=== PATIENT | male | born 1980 | race Caucasian/White ===

== ENCOUNTER 2022-04-10 15:40 | Observation (INO) ==
[2022-04-10 15:53] VITALS: BMI 31.8
--- NOTE | 2022-04-10 16:18 | DR.ABDMALE ---
HPI Time seen Time Seen by Provider: 04/10/22 16:18 PCP Primary Care Physician: DR LISE SHERIDAN Complaint Chief Complaint:: PT C/O 3 DAY HISTORY OF INTERMITTENT RLQ PAIN THAT RADIATES INTO THE BLADDER AND UMBILICAL AREA ASSOCIATED WITH FEVER UP TO 101 AND NAUSEA BUT DENIES VOMITING. COVID-19 Coronavirus risk:travel/contact w/high risk person: No Has patient experienced Coronavirus symptoms: No Mode of arrival Mode of Arrival: Ambulatory Timing Onset of Chief Complaint: 04/10/22 PMH PMH Past Medical History: Yes Past Medical History: Hypertension Past Surgical History: Yes Surgical History: Tonsillectomy Family History History of Family Medical Conditions: Yes Family Medical History Comment: DIVERTICULITIS Social History Does patient currently use any type of tobacco product: No Have you used tobacco products in the last 12 months: No Type of Tobacco Use: None Does any household member use tobacco: No Alcohol Use: DAILY Do you use any recreational Drugs:: No Lives With: Family Lives Where: Home Travel Risk Coronavirus risk:travel/contact w/high risk person: No Has patient experienced Coronavirus symptoms: No Infectious screening In the last 2 months have you had wt loss of >10#?: NO Have you had fever, night sweats or hemotysis?: No Have you traveled outside the country in the last 6 months?: No Isolation: Standard ROS Review of Systems Constitutional: No Symptoms Reported Eyes: No Symptoms Reported ENTM: No Symptoms Reported Respiratoy: No Symptoms Reported Cardiovascular: No Symptoms Reported Gastrointestinal/Abdominal: Abdominal Pain Genitourinary: No Symptoms Reported Neurological: No Symptoms Reported Musculoskeletal: No Symptoms Reported Integumentary: No Symptoms Reported Hematologic/Lymphatic: No Symptoms Reported Endocrine: No Symptoms Reported Psychiatric: No Symptoms Reported All Other Systems: Reviewed and Negative PE Vital Signs Vital Signs: Temp Pulse Resp BP Pulse Ox O2 Del Method 04/10/22 17:46 74 19 123/67 98 Room Air 04/10/22 17:37 79 21 122/63 97 Room Air 04/10/22 16:43 82 22 138/65 95 Room Air 04/10/22 16:35 78 20 134/59 98 Room Air 04/10/22 16:20 87 24 136/71 98 Room Air 04/10/22 16:10 83 20 137/68 96 Room Air 04/10/22 15:49 99.2 F 118 H 20 139/95 97 Room Air General General Appearance: Alert Head Head Exam: Normal Inspection Eyes Eye exam: Normal Appearance ENT ENT Exam: Normal Exam Neck Neck Exam: Normal Inspection Respiratory Respiratory Exam: Normal Lung Sounds Bilat Cardiovascular Cardiovascular Exam: Regular Rate Abdominal Exam Abdominal Exam: Normal Inspection, Normal Bowel Sounds, Soft and Tenderness Abdominal Tenderness: RLQ and Moderate Rectal Rectal Exam: Deferred Back Back Exam: Normal Inspection; negative (R) CVA Tenderness or (L) CVA Tenderness Extremeties Extremities Exam: Normal Inspection; negative Normal Capillary Refill Exam: Male: Normal Inspection Neurologic Neurological Exam: Alert and Oriented X3; negative Motor Sensory Deficit Psychiatric Psychiatric Exam: Normal Affect and Normal Mood Skin Skin Exam: Intact ROR Labs Reviewed Result Diagrams: 04/10/22 16:33 04/10/22 16:33 Laboratory: WBC 10.7 X10^3/uL (3.6-10.0) H 04/10/22 16:33 RBC 5.50 X10^6/uL (4.7-6.0) 04/10/22 16:33 Hgb 15.6 g/dL (13.5-18.0) 04/10/22 16:33 Hct 45.3 % (42.0-54.0) 04/10/22 16:33 MCV 82.5 fL (80.0-100.0) 04/10/22 16:33 MCH 28.4 pg (27.0-34.0) 04/10/22 16:33 MCHC 34.4 g/dL (33.0-35.0) 04/10/22 16:33 RDW 13.4 % (11.6-16.5) 04/10/22 16:33 Plt Count 215 X10^3/uL (150.0-450.0) 04/10/22 16:33 Plt Count Comment Adequate (ADEQUATE) 04/10/22 16:33 MPV 9.6 fL (7.4-11.0) 04/10/22 16:33 Neut % (Auto) 87.3 % (42.0-75.0) H 04/10/22 16:33 Lymph % (Auto) 5.8 % (21.0-51.0) L 04/10/22 16:33 Pope % (Auto) 4.6 % (0.0-13.0) 04/10/22 16:33 Eos % (Auto) 1.5 % (0.9-2.9) 04/10/22 16:33 Baso % (Auto) 0.8 % (0.2-1.0) 04/10/22 16:33 Neut # (Auto) 9.3 x10^3/uL (2.2-4.8) H 04/10/22 16:33 Lymph # (Auto) 0.6 X10^3/uL (1.3-2.9) L 04/10/22 16:33 Pope # (Auto) 0.5 x10^3/uL (0.3-0.8) 04/10/22 16:33 Eos # (Auto) 0.2 x10^3/uL (0.0-0.2) 04/10/22 16:33 Baso # (Auto) 0.1 X10^3/uL (0.0-0.1) 04/10/22 16:33 Absolute Nucleated RBC 0.0 /100WBC 04/10/22 16:33 Total Counted 100 04/10/22 16:33 Neutrophils % (Manual) 88 % (39-76) H 04/10/22 16:33 Lymphocytes % (Manual) 8 % (13-43) L 04/10/22 16:33 Monocytes % (Manual) 3 % (4-9) L 04/10/22 16:33 Eosinophils % (Manual) 1 % (0-6) 04/10/22 16:33 Plt Morphology Comment Normal (NORMAL) 04/10/22 16:33 RBC Morphology Normal (NORMAL) 04/10/22 16:33 Sodium 138 mmol/L (136-145) 04/10/22 16:33 Corrected Sodium TNP 04/10/22 16:33 Potassium 4.6 mmol/L (3.5-5.1) 04/10/22 16:33 Chloride 99 mmol/L (98-107) 04/10/22 16:33 Carbon Dioxide 28.7 mmol/L (21-32) 04/10/22 16:33 BUN 20 mg/dL (7-18) H 04/10/22 16:33 Creatinine 1.36 mg/dL (0.70-1.30) H 04/10/22 16:33 Est GFR (MDRD) Af Amer > 60 (>60) 04/10/22 16:33 Est GFR (MDRD) Non-Af > 60 (>60) 04/10/22 16:33 Glucose 95 mg/dL (65-99) 04/10/22 16:33 Calcium 9.0 mg/dL (8.5-10.1) 04/10/22 16:33 Corrected Calcium TNP 04/10/22 16:33 Total Bilirubin 0.90 mg/dL (0.2-1.0) 04/10/22 16:33 AST 19 Units/L (15-37) 04/10/22 16:33 ALT 23 Units/L (12-78) 04/10/22 16:33 Alkaline Phosphatase 65 Units/L (46-116) 04/10/22 16:33 Total Protein 7.9 g/dL (6.4-8.2) 04/10/22 16:33 Albumin 3.7 g/dL (3.4-5.0) 04/10/22 16:33 Globulin 4.2 g/dL (2.5-4.5) 04/10/22 16:33 Albumin/Globulin Ratio 0.9 Ratio (1.1-2.1) L 04/10/22 16:33 Amylase 45 Units/L (25-115) 04/10/22 16:33 Lipase 90 Units/L (73-393) 04/10/22 16:33 Specimen Type Clean catch urine 04/10/22 16:33 Urine Color Dark yellow (YELLOW) 04/10/22 16:33 Urine Appearance Clear (CLEAR) 04/10/22 16:33 Urine pH 6.0 (5.0 - 8.0) 04/10/22 16:33 Ur Specific [place] 1.030 (1.000-1.030) 04/10/22 16:33 Urine Protein 2+ (NEGATIVE) 04/10/22 16:33 Urine Glucose (UA) Negative (NEGATIVE) 04/10/22 16: Urine Ketones 4+ (NEGATIVE) 04/10/22 16:33 Urine Blood 1+ (NEGATIVE) 04/10/22 16: Urine Nitrite Negative (NEGATIVE) 04/10/22 16: Urine Bilirubin Negative (NEGATIVE) 04/10/22 16:33 Urine Urobilinogen 1+ (NORMAL) 04/10/22 16:33 Ur Leukocyte Esterase Negative (NEGATIVE) 04/10/22 16:33 Urine RBC None seen /HPF (0-3) 04/10/22 16:33 Urine WBC None seen /HPF (0-5) 04/10/22 16:33 Ur Squamous Epith Cells Rare /HPF (NEGATIVE) 04/10/22 16:33 Urine Bacteria Negative /HPF (NEGATIVE) 04/10/22 16:33 Urine Mucus Few /HPF (NEGATIVE) 04/10/22 16:33 Ur Culture Indicated? No/not indicated 04/10/22 16:33 Opioid Opioid Risk Tool Age (Aden box if 16-45): Yes History of Preadolescent Sexual Abuse: No Total: 1 Total Score Risk Category: Low Risk Copyright: Blake MUIR predicting aberrant behaviors Discharge Plan Discharge Plan Patient Disposition: 01 HOME, SELF-CARE Condition: Stable Prescriptions: No Action meloxicam 7.5 mg tablet 7.5 mg PO QDAY losartan 100 mg tablet 100 mg PO QDAY Health Concerns: Post Hospitalization: new medications and changes needed to prevent readmission or further decline. Pt educated and given instructions on all concerns. Plan of Treatment: Continue with present treatment and follow up plan. Pt is to keep follow up appointment as instructed and take medications as ordered. Orders to Discharge Patient Discharge Orders: Transfer (Routine); Ordered 04/10/22 Ordered By: DEMETRIUS GIL Follow ups/Referrals Follow ups/Referrals: LISE SHERIDAN V [Primary Care Provider] - 3 days
[2022-04-10 16:40] LABS: BASOPHILS # (AUTO) 0.1 X10^3/uL (0.0-0.1); BASOPHILS % (AUTO) 0.8 % (0.2-1.0); EOSINOPHILS # (AUTO) 0.2 x10^3/uL (0.0-0.2); EOSINOPHILS % (AUTO) 1.5 % (0.9-2.9); HEMATOCRIT 45.3 % (42.0-54.0); HEMOGLOBIN 15.6 g/dL (13.5-18.0); LYMPHOCYTES # (AUTO) 0.6 X10^3/uL (1.3-2.9); LYMPHOCYTES % (AUTO) 5.8 % (21.0-51.0); MEAN CORPUSCULAR HEMOGLOBIN 28.4 pg (27.0-34.0); MEAN CORPUSCULAR HGB CONC 34.4 g/dL (33.0-35.0); MEAN CORPUSCULAR VOLUME 82.5 fL (80.0-100.0); MEAN PLATELET VOLUME 9.6 fL (7.4-11.0); MONOCYTES # (AUTO) 0.5 x10^3/uL (0.3-0.8); MONOCYTES % (AUTO) 4.6 % (0.0-13.0); NEUTROPHILS # (AUTO) 9.3 x10^3/uL (2.2-4.8); NEUTROPHILS % (AUTO) 87.3 % (42.0-75.0); RED CELL DISTRIBUTION WIDTH 13.4 % (11.6-16.5); WHITE BLOOD COUNT 10.7 X10^3/uL (3.6-10.0)
[2022-04-10 16:45] LABS: BILIRUBIN,URINE NEGATIVE (NEGATIVE); BLOOD/HEMOGLOBIN,URINE 1+ (NEGATIVE); GLUCOSE, URINE NEGATIVE (NEGATIVE); KETONES,URINE 4+ (NEGATIVE); LEUKOCYTE ESTERASE ,URINE NEGATIVE (NEGATIVE); NITRITES,URINE NEGATIVE (NEGATIVE); PROTEIN,URINE 2+ (NEGATIVE); UROBILINOGEN,URINE 1+ (NORMAL)
[2022-04-10 16:49] LABS: APPEARANCE,URINE CLEAR (CLEAR); COLOR,URINE DARK YELLOW (YELLOW)
[2022-04-10 16:52] LABS: BACTERIA,URINE NEGATIVE /HPF (NEGATIVE); RBC,URINE NONE SEEN /HPF (0-3); SQUAMOUS EPITHELIAL CELL,UR RARE /HPF (NEGATIVE)
[2022-04-10 16:53] LABS: ALANINE AMINOTRANSFERASE 23 Units/L (12-78); ALBUMIN 3.7 g/dL (3.4-5.0); ALKALINE PHOSPHATASE 65 Units/L (46-116); AMYLASE 45 Units/L (25-115); ASPARTATE AMINO TRANSFERASE 19 Units/L (15-37); BLOOD UREA NITROGEN 20 mg/dL (7-18); CARBON DIOXIDE 28.7 mmol/L (21-32); CHLORIDE 99 mmol/L (98-107); CREATININE 1.36 mg/dL (0.70-1.30); LIPASE 90 Units/L (73-393); SODIUM 138 mmol/L (136-145); TOTAL PROTEIN 7.9 g/dL (6.4-8.2); eGFR NON BLACK RACES > 60 (>60)
[2022-04-10 17:31] LABS: PLATELET MORPHOLOGY COMMENT NORMAL (NORMAL)
--- NOTE | 2022-04-10 17:44 | CT ---
HISTORYrlq abd painsSTUDYABDOMEN/PELVIS W/O CONCOMPARISONTECHNIQUEMultiple axial images of the abdomen and pelvis were obtained from the lung bases to the pubic symphysis without the administration of IV contrast. Dose reduction techniques including Automated Exposure Control (AEC) and adjustment of mA and kV were utilized.FINDINGSThe lung bases are clear without effusion. The heart size is normal. There is a small hiatal hernia. The liver, gallbladder, pancreas, spleen, adrenal glands, and right kidney are normal. There is a 3.8 cm simple cyst in the left kidney. There is no stone or hydronephrosis on either side. The stomach, small bowel, and appendix are normal. There is diverticulosis in the distal colon. There is diverticulitis in the sigmoid colon with fairly severe inflammation in the fat surrounding the colon. There is no abscess or free air. The inflammation extends to the urinary bladder which suggests that a colovesical fistula may be developing. There is bladder wall thickening. The prostate is normal. No worrisome bone marrow lesion.IMPRESSION1. Sigmoid diverticulitis with involvement of the urinary bladder although a fistula has not yet developed. 2. Negative for appendicitis.Electronically signed by: Thom Mcdaniel (Apr 10, 2022 17:42:54)
[2022-04-10] MEDS ORDERED: D5 1/2 NS 1,000 ML 1,000 ML IV ONE (18:08)
[2022-04-10] MEDS ORDERED: FLAGYL IV PREMIX 500 MG BAG 500 MG/100 ML BAG IV ONE ×2 (18:08→18:27)
[2022-04-10] MEDS ORDERED: D5 1/2 NS 1,000 ML 1,000 ML IV SCH (19:00)
[2022-04-10] MEDS ORDERED: DILAUDID INJ IVP PRN (20:48)
[2022-04-10] MEDS ORDERED: ZOFRAN INJ 4 MG VIAL IVP PRN (20:48)
[2022-04-10] MEDS: CIPRO IV 400 MG PREMIX* 400 MG/200 ML IV.SOLN. IV SCH (22:04)
[2022-04-10] MEDS: FLAGYL IV PREMIX 500 MG BAG 500 MG/100 ML BAG IV SCH (23:43)
[2022-04-11] MEDS: FLAGYL IV PREMIX 500 MG BAG 500 MG/100 ML BAG IV SCH ×2 (05:08→12:21)
[2022-04-11 06:41] LABS: BASOPHILS % (AUTO) 0.3 % (0.2-1.0); EOSINOPHILS # (AUTO) 0.1 x10^3/uL (0.0-0.2); EOSINOPHILS % (AUTO) 1.6 % (0.9-2.9); HEMATOCRIT 40.5 % (42.0-54.0); HEMOGLOBIN 13.8 g/dL (13.5-18.0); LYMPHOCYTES % (AUTO) 16.2 % (21.0-51.0); MEAN CORPUSCULAR HEMOGLOBIN 28.6 pg (27.0-34.0); NEUTROPHILS # (AUTO) 3.9 x10^3/uL (2.2-4.8); NEUTROPHILS % (AUTO) 65.9 % (42.0-75.0); RED BLOOD COUNT 4.83 X10^6/uL (4.7-6.0); RED CELL DISTRIBUTION WIDTH 12.9 % (11.6-16.5)
[2022-04-11 06:59] LABS: ALANINE AMINOTRANSFERASE 21 Units/L (12-78); ALBUMIN 3.2 g/dL (3.4-5.0); ALKALINE PHOSPHATASE 58 Units/L (46-116); ASPARTATE AMINO TRANSFERASE 17 Units/L (15-37); BLOOD UREA NITROGEN 19 mg/dL (7-18); CALCIUM 8.6 mg/dL (8.5-10.1); CARBON DIOXIDE 29.9 mmol/L (21-32); CHLORIDE 100 mmol/L (98-107); COR CA(FOR HYPOALB) 9.2 mg/dL (8.5-10.1); SODIUM 138 mmol/L (136-145); eGFR NON BLACK RACES > 60 (>60)
--- NOTE | 2022-04-11 07:17 | RAD ---
HISTORYPain diverticulitisSTUDYKUBCOMPARISONCT abdomen 04/10/2022FINDINGSIntestinal gas pattern is unremarkable. There is no evidence for mass, extraluminal air, ascites or calcification.IMPRESSIONNo abnormality identified.Electronically signed by: SAMMI DWYER (Apr 11, 2022 07:16:27)
[2022-04-11] MEDS: CIPRO IV 400 MG PREMIX* 400 MG/200 ML IV.SOLN. IV SCH (08:47)
[2022-04-11] MEDS ORDERED: CIPRO TAB 500 MG PO ONE (12:25)
[2022-04-11] MEDS ORDERED: FLAGYL TAB 500 MG PO ONE (12:25)
[2022-04-11 13:31] VITALS: BP 135/68
== END 2022-04-11 12:50 | disposition home or self-care (01) ==
LOC: ER 15:43 → MED/SURG 15:43
PROVIDERS: ADMIT Surgery; ATTEND Surgery
DX: Z20.822 Contact with and (suspected) exposure to COVID-19; R10.31 Right lower quadrant pain; K57.32 Diverticulitis of large intestine without perforation or abscess without bleeding; R94.4 Abnormal results of kidney function studies; R10.84 Generalized abdominal pain